=== PATIENT | male | born 1965 | race Asian ===

== ENCOUNTER 2017-11-24 20:00 | Inpatient (IN) | payer OTHER ==
[~2017-11-24] VITALS: Ht 190.5 cm; Wt 84.8 kg
[2017-11-24] MEDS ORDERED: MORPHINE SULFATE 4 MG/ML CPJ (NOT FOR IM USE) IV STA (21:15)
[2017-11-24] MEDS ORDERED: SODIUM CHLORIDE 0.9% 1,000 ML IV ONE (21:15)
[2017-11-24] MEDS ORDERED: ONDANSETRON HCL 4MG/2ML INJ IV STA (21:15)
[2017-11-24 21:50] LABS: HEMATOCRIT. 45.4 % (42.0-52.0); HEMOGLOBIN. 15.6 g/dL (14.0-18.0); MEAN CORPUSCULAR VOLUME 90.3 fL (80.0-94.0); PLATELET 167 x1000/uL (130-400); RED BLOOD CELL COUNT 5.03 mill/uL (4.7-6.1); RED CELL DISTRIBUTION WIDTH 12.5 % (11.6-14.6)
[2017-11-24 21:54] LABS: CHLORIDE 105 mEq/L (98-107)
[2017-11-24 21:58] LABS: INR 1.1; PARTIAL THROMBOPLASTIN TIME 26.1 sec (23.4-31.0); PROTHROMBIN TIME 10.7 sec (9.1-11.1)
[2017-11-24 22:20] LABS: PLATELET ESTIMATE NORMAL
[2017-11-24 22:37] LABS: CLARITY URINE CLEAR (CLEAR); COLOR URINE DARK YELLOW (YELLOW); KETONES URINE TRACE (NEGATIVE); LEUKOCYTE ESTERASE URINE TRACE (NEGATIVE); NITRITE URINE NEGATIVE (NEGATIVE); OCCULT BLOOD URINE 3+ (NEGATIVE); PH URINE 6.5 (4.5-8.0); PROTEIN URINE TRACE (NEGATIVE); SPECIFIC GRAVITY URINE 1.023 (1.005-1.030)
[2017-11-24] MEDS ORDERED: IOHEXOL-300 100 ML BOTTLE ONE (23:12)
[2017-11-24] MEDS ORDERED: PIPERACILLIN/TAZ 3.375G PREMIX 50 ML IV ONE (23:30)
[2017-11-25 03:30] VITALS: BP 136/82
[2017-11-25] MEDS ORDERED: ONDANSETRON HCL 4MG/2ML INJ IV PRN (05:00)
[2017-11-25] MEDS ORDERED: MORPHINE SULFATE 4 MG/ML CPJ (NOT FOR IM USE) IV PRN (05:00)
[2017-11-25] MEDS ORDERED: DEXT 5%/0.9% NACL 1,000 ML IV SCH (06:00)
[2017-11-25] MEDS ORDERED: CEFTRIAXONE 1 G PREMIX 50 ML IV SCH (07:00)
[2017-11-25] MEDS ORDERED: SKIN ADHESIVE 0.7 GM EA TOP ONE (07:34)
[2017-11-25] MEDS ORDERED: BUPIVACAINE HCL 0.5% (5MG/ML) 50ML ONE (07:34)
[2017-11-25 08:00] VITALS: BP 134/77
[2017-11-25 08:31] LABS: BASOPHILS % 0.2 % (0.0-2.0); EOSINOPHILS % 0.1 % (0.0-5.0); HEMATOCRIT. 44.5 % (42.0-52.0); HEMOGLOBIN. 15.4 g/dL (14.0-18.0); LYMPHOCYTES % 14.1 % (20.0-50.0); MEAN CORPUSCULAR VOLUME 89.9 fL (80.0-94.0); MEAN PLATELET VOLUME 8.7 fl (7.4-10.4); MONOCYTES % 4.1 % (2.0-8.0); NEUTROPHILS % 81.5 % (40.0-76.0); PLATELET 168 x1000/uL (130-400); RED BLOOD CELL COUNT 4.95 mill/uL (4.7-6.1); RED CELL DISTRIBUTION WIDTH 12.5 % (11.6-14.6)
[2017-11-25 08:56] LABS: CHLORIDE 108 mEq/L (98-107)
[2017-11-25] MEDS ORDERED: TAMSULOSIN HCL 0.4MG SR CAPSULE PO SCH ×2 (09:00)
[2017-11-25] MEDS: SODIUM CHLORIDE 0.9% 1,000 ML IV SCH ×2 (09:16→15:04)
[2017-11-25 11:58] VITALS: BP 130/73
== END 2017-11-25 18:40 | disposition left against medical advice (07) | DRG 463 ==
LOC: ER 20:00 → 8WST 11-25 00:29 → EDBEDREQTM 11-25 00:52 → EDBEDREQ 11-25 00:52 → EDBEDREQSVC 11-25 00:52 → ENRESERV 11-25 02:04
PROVIDERS: ADMIT Internal Medicine Nephrology; ATTEND Internal Medicine Nephrology
DX: N13.6 Pyonephrosis (principal); F17.200 Nicotine dependence, unspecified, uncomplicated; Z53.21 Procedure and treatment not carried out due to patient leaving prior to being seen by health care provider; I10 Essential (primary) hypertension; Z87.442 Personal history of urinary calculi
CPT/HCPCS: 36415; 71045; 74177; 93005; 96361; 96365; 96375; 99285; J0696; J2270; J2405; J2543; J3490; J7030; J7042; Q9967